=== PATIENT | female | born 1935 | race Caucasian/White ===

== ENCOUNTER 2016-04-12 22:04 | Emergency (ER) | payer MEDICARE, OTHER ==
[~2016-04-12 22:04] MED LIST: ALBU3SOL2 IH; ASPI81TA2 PO; Amoxicillin-Clav 875-125 mg Tablet PO ONE; CAR120CD PO; CARV25T PO; COMBIVENTA IH; FOS70 PO; FURO20TA PO; MIRT30TA PO; NIT4 SL; Ondansetron 2 mg/mL 2 mL Inj ONE; POTA10TA PO; PRE10 PO; SLO64 PO; SMV40T PO; VIB100 PO
--- NOTE | 2016-04-12 23:44 | ED.REPORT ---
HPI-General Illness Date of Service Apr 12, 2016 ED Provider: Boubacar Sandoval MD Patient is an 80 year old female with a history of light chain multiple myeloma , hypertension, atrial fibrillation, and COPD who presents to the ED after she developed abdominal pain, nausea, and vomiting at 2pm this afternoon. The patient states that she has lost her appetite and she has been unable to eat due to her vomiting. She also reports developing shaking chills and fever, worsening in severity since onset. Patient admits to a cough, but she does have a cough at baseline due to her COPD. Patient denies diarrhea, chest pain, or shortness of breath. Patient denies previously having surgery on her abdomen. The patient's grandson was recently sick with GI symptoms as well. Nursing Notes Stated Complaint: NAUSEA, VOMITING Nursing Notes Reviewed: Yes Allergies: Coded Allergies: Aminoglycosides (Verified Allergy, Mild, 01/08/09) Neomycin (Verified Allergy, Mild, 01/08/09) Polymyxin B (Verified Allergy, Mild, 01/08/09) bacitracin (Verified Allergy, Mild, 01/08/09) Scheduled Albuterol/Ipratropium (DuoNEB Nebule) 3 Ml Nebu 3 ML IH Q6HP Alendronate-Expunged Drug, Do Not Renew! (Alendronate-Expunged Drug, Do Not Renew!) 70 Mg Tablet 70 MG PO QW GIVE 30 MINUTES BEFORE BREAKFAST WITH 8-OZ WATER Aspirin-Expunged Drug, Do Not Renew! (Aspirin-Expunged Drug, Do Not Renew!) 81 Mg Tab 81 MG PO DAILY Carvedilol-Expunged Drug, Do Not Renew! (Carvedilol-Expunged Drug, Do Not Renew! ) 25 Mg Tablet 25 MG PO BID HOLD HR<60 Diltiazem-Expunged Drug, Do Not Renew! (Diltiazem CD-Expunged Drug, Do Not Renew !) 120 Mg Capsule 120 MG PO DAILY 24 HOUR DOSAGE FORM Doxycycline-Expunged Drug, Do Not Renew! (Doxycycline-Expunged Drug, Do Not Renew!) 100 Mg Tablet 100 MG PO Q12 Furosemide-Expunged Drug, Do Not Renew! (Furosemide-Expunged Drug, Do Not Renew! ) 20 Mg Tablet 20 MG PO DAILY Ipratropium/Albut-Expunged Drug, Do Not Renew (Combivent-Expunged Drug, Do Not Renew!) 14.7 Gm Aer.w.adap 14.7 GM IH QID Mag Chloride-Expunged Drug, Do Not Renew! (Rvtp-Ceq-Wpgzxmhq Drug, Do Not Renew! ) 64 Mg Tab.dr 64 MG PO DAILY Mirtazapine-Expunged Drug, Do Not Renew! (Remeron-Expunged Drug, Do Not Renew!) 30 Mg Tablet 30 MG PO HSP FOR INSOMNIA Nitroglycerin-Expunged Drug, Do Not Renew! (Nitroglycerin SL-Expunged Drug, Do Not Renew!) 0.4 Mg Subl 0.4 MG SL PRN FOR CHEST PAIN Potassium Chl-Expunged Drug, Do Not Renew! (X-Ilf-Nbsfvyrp Drug, Do Not Renew!) 10 Meq Tablet.sa 10 MEQ PO DAILY PredniSONE-Expunged Drug, Do Not Renew! (PredniSONE-Expunged Drug, Do Not Renew! ) 10 Mg Tab 10 MG PO DAILY TAKE WITH FOOD Simvastatin-Expunged Drug, Choose New Med! (Simvastatin-Expunged Drug, Choose New Med!) 40 Mg Tablet 40 MG PO HS INPATIENT MAX DOSE 40 MG Scheduled PRN Ondansetron ODT (Ondansetron ODT) 8 Mg Tab.rapdis 8 MG PO QID PRN PRN For Nausea General Time Seen by MD: 20:33 Chief Complaint Abdominal pain, Vomiting Hx Obtained From: Patient, Other family... Arrived By: Walk-in Onset Occurred: 5 - 8 hours ago Symptom Duration: Since onset Location: : Abdomen Quality: Painful Severity: Current: Mild Severity: Maximum: Moderate Recent Healthcare: No recent doctor visit, No recent hospitalization Similar Sx Previous: No Past Medical History Past Medical History 1. light chain multiple myeloma 2. COPD, longtime smoker 3. Left leg deep vein thrombosis in 2008. 4. Atrial fibrillation 5. Gastrointestinal bleed in 2008, diagnosed with Clostridium difficile 6. Reported myocardial infarction in 2006, unknown details. 7. Hypertension. 8. Osteoarthritis. 9. Eczema. 10. 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 Tonsillectomy. 12. Cataracts. 13. Left femur fracture status post ORIF in 2007. 14. Past history of alcohol abuse and withdrawal, no longer drinking. 15. Osteoporosis. 16. MRSA Past Surgical History Left femur fracture status post ORIF in 2007. Reports: Tonsillectomy Smoking History Current Every Day Smoker Social History Alcohol Use: In recovery Other Social History: Good social support, Local resident Ambulatory Status Independent Review of Systems Full Review of Systems Constitutional: Reports: Chills, Fever Respiratory: Reports: Non-productive cough, Denies: Shortness of breath Cardiovascular: Denies: Chest pain GI: Reports: Abdominal pain, Nausea, Vomiting, Denies: Diarrhea Complete sys rev & neg: except as marked. Physical Exam Vital Signs Vital Signs Date Time Temp Pulse Resp B/P Pulse Ox O2 Delivery O2 Flow Rate FiO2 04/13/16 03:38 36.6 72 18 91/51 96 Room Air 04/13/16 00:30 37.1 79 22 115/53 91 Room Air see paper chart Initial VS: Reviewed Skin: Warm, Dry, No cyanosis Neurologic: Alert, Oriented, Nonfocal Psychiatric: Mood/affect normal, Behavior normal, Normal thought content General/Constitutional: Awake, Alert Appearance / Presentation: Positive: Pale smells of vomit dry appearing Head / Eyes: Atraumatic, Normocephalic, PERRL ENT: Airway patent Mouth: Positive: Mucous membranes dry Neck: Supple, Full range of motion Respiratory / Chest: Breath sounds NL, Breath sounds = bilat, No respiratory distress, No rales, No rhonchi, No wheezing Cardiovascular: Heart rate NL, No gallop, No murmurs, No rubs Heart Rate / Rhythm: Positive: Irregular rhythm (frequent extra beats) Abdomen: Soft, No guarding, No rebound, BS normoactive Tenderness/Guarding/Rebound: Positive: Tender LUQ..., Tender RUQ... reactive to palpation Upper Extremities Upper Extremity / MS: No swelling, No edema Lower Extremity / Pelvis / MS: No swelling, No edema Interpretation & Diagnostics Lab Results Interpretation Result Diagram: 04/12/16 22004/12/16 220 Test 04/12/16 22:04 04/13/16 00:20 White Blood Count 9.5th/mm3 (3.8-10.1) Red Blood Count 3.74mil/mm3 (3.90-5.20) Hemoglobin 11.9g/dL (12.0-15.6) Hematocrit 35.3% (35.0-46.0) Mean Corpuscular Volume 94.4fL (81-100) Mean Corpuscular Hemoglobin 31.8pg (27.0-35.0) Mean Corpuscular Hemoglobin Concent 33.7% (32.0-37.0) Red Cell Distribution Width 12.9% (12.3-15.4) Platelet Count 274bil/L (150-400) Neutrophils (%) (Auto) 79.4% (40-74) Lymphocytes (%) (Auto) 13.8% (14-46) Monocytes (%) (Auto) 6.1% (4-12) Eosinophils (%) (Auto) 0.2% (0-5) Basophils (%) (Auto) 0.3% (0-3) Sodium Level 141mEq/L (134-144) Potassium Level 3.9mEq/L (3.5-5.2) Chloride Level 97mEq/L (97-108) Carbon Dioxide Level 28mmol/L (18-29) Blood Urea Nitrogen 27mg/dL (8-27) Creatinine 1.16mg/dL (0.57-1.00) Estimat Glomerular Filtration Rate 64mL/min (>59) Glucose Level 171mg/dL (60-99) Lactic Acid Level 1.3mmol/L (0.4-2.0) Calcium Level 9.8mg/dL (8.5-10.1) Total Bilirubin 0.2mg/dL (0.0-1.2) Aspartate Amino Transf (AST/SGOT) 31U/L (0-50) Alanine Aminotransferase (ALT/SGPT) 20U/L (0-32) Alkaline Phosphatase 64U/L (25-165) Total Protein 7.4g/dL (6.4-8.4) Albumin 4.0g/dL (3.4-5.0) Lipase 32U/L (13-60) Urine Color Yellow (YELLOW) Urine Appearance Clear (CLEAR,HAZY) Urine pH 7.0 (5.0-8.0) Urine Specific [place] 1.015 (1.003-1.035) Urine Protein Negativemg/dL (NEG,TRACE) Urine Glucose (UA) Negativemg/dL (NEGATIVE) Urine Ketones Negativemg/dL (NEGATIVE) Urine Occult Blood Negative (NEGATIVE) Urine Nitrite Negative (NEGATIVE) Urine Bilirubin Negative (NEGATIVE) Urine Urobilinogen Normalmg/dL (NORMAL) Urine Leukocyte Esterase Negative (NEGATIVE) Urine RBC 0-2/hpf (0-2) Urine WBC 0-5/hpf (0-5) Urine Epithelial Cells Occasional/hpf (NONE-MOD) Urine Crystals None seen (NONE SEEN) Urine Bacteria None/hpf (NONE-FEW) Urine Hyaline Casts None/lpf (NONE) Urine Granular Casts None seen (NONE SEEN) Urine Waxy Casts None seen (NONE SEEN) Urine Red Blood Cell Casts None seen (NONE SEEN) Urine White Blood Cell Casts None seen (NONE SEEN) Urine Mucus None seen (None Seen) Urine Trichomonas None seen (NONE SEEN) Urine Yeast None (NONE SEEN) Urine Culture Reflexed Not indicated ECG Interpretation ECG Interpretation: Sinus rhythm, Rate 78 atrial premature complex low voltage, extremity leads anteroseptal infarct, age indeterminate Time: 23:44 Interpreted by: ED physician X-Ray Chest Interpretation Chest Xray Interpretation: Impression: No acute cardiopulmonary process. View: Portable Interpretation / Wet Read by: Wet read ED physician Re-Eval/Medical Decision Med Decision/Clinical Course 80-year-old female presents with acute onset of nausea vomiting and poor appetite. Others in the family are similarly afflicted. She is improved here with fluids and Zofran. She desires to go home and try ongoing oral hydration. No particular medications from lab or exam that she requires hospitalization at this point, and since she has tolerated by mouth fluid trial and is looking considerably better, she is discharged home in stable condition. Source of Hx: Old records Time of Eval: 02:18 Patient Status: Condition improved Re-Evaluation/Progress Note: Rechecked the patient, who is resting in bed comfortably. Patient states that she is improved. She was informed that there was nothing acute identified on labs, EKG, and chest x-ray. She will do a fluid trial and states thats she is now hungry. Time of Eval: 03:34 Patient Status: Condition improved, Drinking well without N/V Re-Evaluation/Progress Note: Patient understands and agrees with the plan to be discharged home. Discharge instructions and follow-up discussed. All questions were addressed. Return to the ED warnings given. Counseled Regarding: Diagnosis, Lab results, Need for follow-up, When/why to return to ED Discharge & Departure Primary Impression: Acute gastroenteritis Additional Impression: Multiple myeloma Disposition: Home Discharge Condition All VS Reviewed: Yes Condition: Stable Patient Instructions: Gastroenteritis (ED) Additional Instructions: Zofran as needed for nausea, up to four times daily. Drink clear fluids and maintain her hydration. Advance her diet only slowly back to normal as you tolerate. Avoid fat, milk, meats for a few days. Return promptly if worse despite treatment. Return if you develop a high fever , or other new symptoms of concern. Referrals: Angela Rojas MD (PCP) Scribe Attestation Portions of this note were transcribed by Cecilia Murray. I, Dr. Sandoval personally performed the history, physical exam and medical decision-making; I reviewed and confirmed the accuracy of the information in the transcribed note. Signed by: Dilcia Vences, 04/13/2016 [id number] copies to: Angela Rojas MD, Christopher W MD Apr 12, 2016 23:44 Cecilia Murray Apr 12, 2016 23:49
[2016-04-13 00:30] VITALS: BP 115/53; PULSE 79; RESP 22; O2SAT 91
[2016-04-13 02:03] LABS: Mean Corpuscular Volume 94.4 fL (81-100)
[2016-04-13 02:04] LABS: BASOPHILS % (AUTO) 0.3 % (0-3); EOSINOPHILS % (AUTO) 0.2 % (0-5); MONOCYTES % (AUTO) 6.1 % (4-12); Mean Corpuscular Hemoglobin 31.8 pg (27.0-35.0); NEUTROPHILS % (AUTO) 79.4 % (40-74); Platelet Count 274 bil/L (150-400)
[2016-04-13 02:09] LABS: APPEARANCE,URINE CLEAR (CLEAR,HAZY); COLOR,URINE YELLOW (YELLOW); OCCULT BLOOD,URINE NEGATIVE (NEGATIVE); UROBILINOGEN,URINE NORMAL (NORMAL)
[2016-04-13] MEDS ORDERED: ONDA8TAB10 PO (03:14)
[2016-04-13 03:38] VITALS: BP 91/51; PULSE 72; RESP 18; O2SAT 96
--- NOTE | 2016-04-13 08:57 | DRSVH ---
PROCEDURE: X-RAY CHEST ONE VIEW, PORTABLE ([id number]) INDICATIONS: fever, chills TECHNIQUE: One view of the chest was acquired. COMPARISON: [facility], CR, XR CHEST 2VW, 12/28/2014, 11:59. [facility], C R, CHEST 1VW (PORTABLE), 04/04/2012, 6:34. FINDINGS: Surgical changes and devices: None. Lungs and pleura: No pleural effusions or pneumothorax. Lungs are clear. Lung volumes are increased with flattening of the hemidiaphragms suggesting COPD. Mediastinum: Mediastinal contours appear normal. Heart size is normal. Bones and chest wall: No suspicious bony lesions. Overlying soft tissues appear unremarkable. Allyson ral healed and ununited left posterior-lateral rib fractures redemonstrated. IMPRESSION: Lung volumes are increased suggesting COPD, correlate with pulmonary functions test. 1. Dictated by: Fletcher Reed RRA Interpreted: Mel Reynoso MD on 04/13/2016 at 8:56 Transcribed by: GI on 04/13/2016 at 8:57 Approved by: Mel Reynoso MD, PhD on 04/13/2016 at 17:03
== END 2016-04-13 03:40 | disposition home or self-care (01) ==
LOC: SED 22:04
DX: K52.9 Noninfective gastroenteritis and colitis, unspecified (principal); C90.00 Multiple myeloma not having achieved remission; I10 Essential (primary) hypertension; I25.2 Old myocardial infarction; F17.200 Nicotine dependence, unspecified, uncomplicated; Z79.82 Long term (current) use of aspirin; Z88.1 Allergy status to other antibiotic agents; Z88.8 Allergy status to other drugs, medicaments and biological substances

== ENCOUNTER 2016-11-12 11:25 | Inpatient (IN) | payer MEDICARE, OTHER ==
[~2016-11-12] VITALS: Ht 165.1 cm; Wt 42.6 kg
[~2016-11-12 11:25] MED LIST changes: -Amoxicillin-Clav 875-125 mg Tablet PO ONE; +ONDA8TAB10 PO; -Ondansetron 2 mg/mL 2 mL Inj ONE
[2016-11-12 11:34] VITALS: BP 106/54; PULSE 81; RESP 24; O2SAT 94
[2016-11-12 11:57] LABS: BASOPHILS % (AUTO) 0.1 % (0-3); EOSINOPHILS % (AUTO) 0.6 % (0-5); MONOCYTES % (AUTO) 8.6 % (4-12); Mean Corpuscular Hemoglobin 31.6 pg (27.0-35.0); Mean Corpuscular Volume 95.3 fL (81-100); NEUTROPHILS % (AUTO) 77.8 % (40-74); Platelet Count 207 bil/L (150-400)
--- NOTE | 2016-11-12 12:09 | ED.REPORT ---
HPI-Dyspnea / Wheezing Date of Service Nov 12, 2016 ED Provider: Thom Orona MD Pt is an 81 y/o female w/ a hx of multiple myeloma, CHF, COPD and smoking, LLE DVT, A-fib, HTN, VT, prior alcoholism, presenting to the ED via EMS with her daughter c/o gradual worsening of SOB onset last night. The patient woke up vomiting 4 days ago and since then has been experiencing SOB, productive cough, abdominal pain, anorexia, generalized weakness, pleuritic chest pain. She is not sure what is making her shortness of breath worse or what may have brought it on; denies any notable alleviating or exacerbating factors. She is having difficulty ambulating secondary to generalized weakness and her shortness of breath. She states that she is unsure whether or not this feels similar to previous episodes where she has had COPD exacerbations. Pt denies fever, diarrhea, constipation. There is no baseline oxygen use. She does smoke half a pack of cigarettes each day but hasn't since she has been feeling ill The patient has been using her inhaler multiple times each day without relief. The patient has a known UTI and is being treated for it. Nursing Notes Stated Complaint: SOB Chief Complaint: Respiratory Distress Nursing Notes Reviewed: Yes Allergies: Coded Allergies: Aminoglycosides (Verified Allergy, Mild, 01/08/09) bacitracin (Verified Allergy, Mild, Hives, 11/12/16) neomycin (Verified Allergy, Mild, Hives, 11/12/16) polymyxin B (Verified Allergy, Mild, Hives, 11/12/16) Sulfa (Sulfonamide Antibiotics) (Verified Allergy, Unknown, 11/12/16) Scheduled Aspirin Chew (Aspirin Chew) 81 Mg Chew 162 MG PO QAM Calcium Carbonate/Vitamin D3 (Calcium 500 mg Chewable Tablet) 1 Each Tab.chew 1 EACH PO QAM Carvedilol (Carvedilol) 12.5 Mg Tablet 12.5 MG PO BID HOLD FOR HR < 60 BPM Cholecalciferol (Vitamin D3) (Vitamin D3) 2,000 Unit Tablet 2,000 UNIT PO QAM Cyanocobalamin (Vitamin B-12) (Vitamin B-12) 1,000 Mcg Tablet 1,000 MCG PO QAM Folic Acid (Folic Acid) 0.4 Mg Tablet 0.4 MG PO QAM Furosemide (Furosemide) 20 Mg Tab 20 MG PO QAM Magnesium Chloride (Slow-Mag) 64 Mg Tablet 64 MG PO QAM Mirtazapine (Mirtazapine) 30 Mg Tablet 30 MG PO HS Multivits-Min/Iron/FA/Lutein (Centrum Silver Women Tablet) 8 Mg Iron-400 Mcg- 300 Mcg Tablet 1 EACH PO QAM Nitrofurantoin Monohyd/M-Cryst (MacroBid) 100 Mg Capsule 100 MG PO BID Potassium Chloride ER (Potassium Chloride ER) 10 Meq Tablet 10 MEQ PO DAILYWM TAKE WITH FOOD Simvastatin (Simvastatin) 40 Mg Tablet 40 MG PO HS Tiotropium [place] (Spiriva) 18 Mcg Cap.w.dev 18 MCG IH QAM Scheduled PRN Albuterol Neb Soln (Albuterol Neb Soln) 2.5 Mg/3 Ml Vial.neb 2.5 MG INHALATION Q4H PRN PRN For Shortness of Breath Nitroglycerin SL (Nitroglycerin SL) 0.4 Mg Tab.subl 0.4 MG SL Q5MIN PRN PRN For Chest Pain General Time Seen by MD: 14:27 Chief Complaint Shortness of breath Hx Obtained From: Patient, EMS Arrived By: Ambulance Sudden in Onset?: No Onset Occurred: 9 - 12 hours ago Symptom Duration: Since onset Location: : Chest left: Chest right Quality: Pleuritic Severity: Current: Mild Severity: Maximum: Moderate Recent Healthcare: Previous diagnosis Similar Sx Previous: Yes Past Medical History Past Medical History 1. light chain multiple myeloma 2. COPD, longtime smoker CHF 3. Left leg deep vein thrombosis in 2008. 4. Atrial fibrillation 5. Gastrointestinal bleed in 2008, diagnosed with Clostridium difficile 6. Reported myocardial infarction in 2006, unknown details. 7. Hypertension. 8. Osteoarthritis. 9. Eczema. 10. 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 Tonsillectomy. 12. Cataracts. 13. Left femur fracture status post ORIF in 2007. 14. Past history of alcohol abuse and withdrawal, no longer drinking. 15. Osteoporosis. 16. MRSA Past Surgical History Left femur fracture status post ORIF in 2007. Reports: Tonsillectomy Smoking History Current Every Day Smoker Social History 40 years of alcoholism Alcohol Use: In recovery Other Social History: Good social support, Local resident Ambulatory Status Independent Review of Systems Constitutional: Reports: Weakness - generalized, Denies: Fever Ears / Nose / Throat: Denies: Sore throat Respiratory: Reports: Pleuritic pain, Prod cough, clear, Shortness of breath Cardiovascular: Denies: Orthopnea Musculoskeletal: Denies: Extremity pain Skin: Denies Unexplained bruises Allergy / Immune: Denies: Itching Complete sys rev & neg: except as marked. Eyes: Denies: Blurred bilateral GI: Reports: Abdominal pain, Anorexia, Nausea, Vomiting, Denies: Constipation, Diarrhea Female: Denies: Dysuria Neurologic: Denies: Confusion, Headache Psychiatric: Denies: Change mental status Physical Exam Nursing note and vitals reviewed. Constitutional: Thin elderly female sitting up in bed. Mildly uncomfortable. Head: Normocephalic and atraumatic. Mouth/Throat: Oropharynx is clear and dry. No oropharyngeal exudate. Eyes: EOM are normal. Pupils are equal, round, and reactive to light. Neck: Supple, no tracheal deviation. Cardiovascular: Normal rate, regular rhythm. Equal and intact distal pulses throughout. Pulmonary/Chest: Effort normal. Expiratory wheezes bilateral bases. No respiratory distress. Abdominal: Soft. No distension. Diffuse tenderness to palpation with no rebound , or guarding. BS present. Musculoskeletal: Range of motion grossly intact, moving all extremities. No peripheral edema. Neurological: AOx3. Grossly nonfocal exam. Strength and sensation intact and equal to bilateral upper and lower extremities. Skin: Warm and dry, no rashes or pallor appreciated. Psychiatric: Appropriate mood and affect. Behavior appears normal. Initial Vital Signs Vital Signs (First) Date Time Temp Pulse Resp B/P Pulse Ox O2 Delivery O2 Flow Rate FiO2 11/12/16 11:34 36.9 81 24 106/54 94 Room Air Initial VS: Reviewed Interpretation & Diagnostics Lab Results Interpretation Result Diagram: 11/12/16 1145 11/12/16 1145 Test 11/12/16 11:45 11/12/16 12:27 11/12/16 13:22 11/12/16 13:30 White Blood Count 12.3th/mm3 (3.8-10.1) Red Blood Count 3.20mil/mm3 (3.90-5.20) Hemoglobin 10.1g/dL (12.0-15.6) Hematocrit 30.5% (35.0-46.0) Mean Corpuscular Volume 95.3fL (81-100) Mean Corpuscular Hemoglobin 31.6pg (27.0-35.0) Mean Corpuscular Hemoglobin Concent 33.1% (32.0-37.0) Red Cell Distribution Width 14.4% (12.3-15.4) Platelet Count 207bil/L (150-400) Neutrophils (%) (Auto) 77.8% (40-74) Lymphocytes (%) (Auto) 12.7% (14-46) Monocytes (%) (Auto) 8.6% (4-12) Eosinophils (%) (Auto) 0.6% (0-5) Basophils (%) (Auto) 0.1% (0-3) Prothrombin Time 9.9sec (8.1-12.5) Prothromb Time International Ratio 0.93ratio Activated Partial Thromboplast Time 27.7sec (22.8-33.0) Sodium Level 138mEq/L (134-144) Potassium Level 4.4mEq/L (3.5-5.2) Chloride Level 102mEq/L (97-108) Carbon Dioxide Level 23mmol/L (18-29) Blood Urea Nitrogen 28mg/dL (8-27) Creatinine 1.15mg/dL (0.57-1.00) Estimat Glomerular Filtration Rate 65mL/min (>59) Glucose Level 108mg/dL (60-99) Calcium Level 8.6mg/dL (8.5-10.1) Magnesium Level 2.0mg/dL (1.6-2.6) Total Bilirubin 0.2mg/dL (0.0-1.2) Aspartate Amino Transf (AST/SGOT) 51U/L (0-50) Alanine Aminotransferase (ALT/SGPT) 33U/L (0-32) Alkaline Phosphatase 96U/L (25-165) Pro-B-Type Natriuretic Peptide 90674ok/mL (0-738) Total Protein 6.4g/dL (6.4-8.4) Albumin 3.1g/dL (3.4-5.0) Lipase 27U/L (13-60) Procalcitonin 1.38ng/mL (0.00-0.08) Thyroid Stimulating Hormone (TSH) 3.720uIU/mL (0.450-4.500) Lactic Acid Level 0.8mmol/L (0.4-2.0) Urine Legionella pneumophilia Ag Negative (Negative) Urine Color Yellow (YELLOW) Urine Appearance Hazy (CLEAR,HAZY) Urine pH 6.5 (5.0-8.0) Urine Specific [place] 1.010 (1.003-1.035) Urine Protein 100mg/dL (NEG,TRACE) Urine Glucose (UA) Negativemg/dL (NEGATIVE) Urine Ketones Negativemg/dL (NEGATIVE) Urine Occult Blood Trace (NEGATIVE) Urine Nitrite Negative (NEGATIVE) Urine Bilirubin Negative (NEGATIVE) Urine Urobilinogen Normalmg/dL (NORMAL) Urine Leukocyte Esterase Small (NEGATIVE) Urine RBC 3-10/hpf (0-2) Urine WBC 11-50/hpf (0-5) Urine Epithelial Cells Occasional/hpf (NONE-MOD) Urine Crystals None seen (NONE SEEN) Urine Bacteria Few/hpf (NONE-FEW) Urine Hyaline Casts None/lpf (NONE) Urine Granular Casts None seen (NONE SEEN) Urine Waxy Casts None seen (NONE SEEN) Urine Red Blood Cell Casts None seen (NONE SEEN) Urine White Blood Cell Casts None seen (NONE SEEN) Urine Mucus None seen (None Seen) Urine Trichomonas None seen (NONE SEEN) Urine Yeast None (NONE SEEN) Urinalysis Comment None Urine Culture Reflexed Indicated ECG Interpretation ECG Interpretation: Sinus rhythm rate [address] or T changes Time: 11:55 Interpreted by: ED physician Normal ECG Interpretation: No acute ischemic changes X-Ray Chest Interpretation Chest Xray Interpretation: IMPRESSION: 1. Mild right basilar airspace disease may represent atelectasis, pneumonia, or aspiration. 2. Trace right-sided pleural effusion. Dictated by: Dionte Du M.D. on 11/12/2016 at 11:25 Approved by: Dionte Du M.D. on 11/12/2016 at 11:27 View: Portable, 1 view Interpretation / Wet Read by: Interpret - Radiologist CT Abd / Pelvis Interpretation IMPRESSION: 1. No definite acute abnormality within the abdomen or pelvis. 2. Small bilateral pleural effusions and associated atelectasis. Superimposed right basilar pneumonia difficult to exclude. 3. Moderate residual stool within the colon. No bowel obstruction. 4. Colonic diverticulosis without diverticulitis. The appendix is normal. 5. Cholelithiasis. 6. Perinephric edema probably a senescent. The possibility of renal inflammation/infection is difficult to exclude and clinical correlation is recommended. No definite renal calculi. 7. Extensive pancreatic calcifications are suggestive of prior pancreatitis. No findings to suggest acute pancreatitis are evident. Dictated by: Dionte Du M.D. on 11/12/2016 at 15:38 Approved by: Dionte Du M.D. on 11/12/2016 at 15:57 Study type: Abdominal CT IV contrast, Abdom CT oral contrast Interpretation / Wet Read by: Interpret - Radiologist Re-Eval/Medical Decision Med Decision/Clinical Course In summary, 81-year-old female presenting to the ED for evaluation of worsening shortness of breath over the past day. Differential is broad and includes ACS, pneumonia, PE, COPD exacerbation, CHF exacerbation, etc. Of note, she also has some significant abdominal tenderness. EKG demonstrates normal sinus rhythm and no acute ischemic changes. Initial laboratory studies notable for a troponin [place] 0.078, [place] [address], creatinine of 1.15, white blood cell count of 12.3, hemoglobin of 10.1, urinalysis with 11-50 white blood cells and a small amount of leukocyte esterase concerning for mild or resolving urinary tract infection. Lactic acid 0.8. LFTs mildly elevated. CT scan of the patient's abdomen and pelvis demonstrates bilateral pleural effusions and possible right- sided pneumonia, as well as the above findings. I suspect that she is having a CHF exacerbation with a possible superimposed pneumonia, and that this is likely causing a type II NSTEMI. Given the above, patient was started on antibiotics for possible community-acquired pneumonia, and given Lasix. Plan admission for further management and evaluation. Patient agreeable to the plan as stated, no further questions. Re-Evaluation/Progress : Time of Eval: 15:01 Re-Evaluation/Progress Note: Pt rechecked. Informed pt of need for admission. Pt understands and agrees with plan for admission. All questions addressed. CODE STATUS DISCUSSED: FULL CODE Consultation : Referral / Consult Name: Edis Montana MD Consulted With: Hospitalist Call Returned at: 17:59 Supervisor Lump Room: Will see patient, Agrees with eval, Agrees with plan, Accepts admit Counseled Regarding: Diagnosis, Lab results, Need for admission Discharge & Departure Impression: Primary Impression: CHF exacerbation Congestive heart failure type: unspecified congestive heart failure type Qualified Code: I50.9 - Heart failure, unspecified Additional Impressions: Pneumonia involving right lung Pneumonia type: due to unspecified organism Lung location: lower lobe of lung Qualified Code: J18.1 - Lobar pneumonia, unspecified organism NSTEMI (non-ST elevated myocardial infarction) Bilateral pleural effusion Cholelithiasis Cholelithiasis location: gallbladder Cholecystitis presence: without cholecystitis Biliary obstruction: without biliary obstruction Qualified Code : K80.20 - Calculus of gallbladder without cholecystitis without obstruction Disposition: ADMITTED TO HOSPITAL Discharge Condition All VS Reviewed: Yes Condition: Stable Referrals: Amy Lee (PCP) Scribe Attestation Portions of this note were transcribed by Hussain Turner. I, Dr. Orona personally performed the history, physical exam and medical decision-making; I reviewed and confirmed the accuracy of the information in the transcribed note. copies to: Amy Lee William B MD Nov 12, 2016 12:09 HUSSAIN TURNER Nov 12, 2016 12:12 Thom Orona MD Nov 12, 2016 12:09 HUSSAIN TURNER Nov 12, 2016 12:12
--- NOTE | 2016-11-12 12:29 | DRSVH ---
PROCEDURE: X-RAY CHEST ONE VIEW, PORTABLE ([id number]) INDICATIONS: cough TECHNIQUE: One view of the chest was acquired. COMPARISON: [facility], [place], XR CHEST 2VW, 04/30/2016, 14:25. FINDINGS: Surgical changes and devices: None. Lungs and pleura: Blunting of the right costophrenic angle is evident with interstitial prominence an d probable airspace disease at the right lung base. Aeration of the left lung appears to be within n ormal limits. There probably is mild pulmonary hyperexpansion. No pneumothorax is evident. Mediastinum: Mediastinal contours appear normal. Heart size is normal. There is aortic atheroscler osis. Bones and chest wall: No suspicious bony lesions. A chronic unfused left 7th rib fracture is eviden t. Multilevel degenerative changes of the spine and shoulders are noted. Overlying soft tissues appe ar unremarkable. IMPRESSION: 1. Mild right basilar airspace disease may represent atelectasis, pneumonia, or aspiration. 2. Trace right-sided pleural effusion. Dictated by: Dionte Du M.D. on 11/12/2016 at 11:25 Approved by: Dionte Du M.D. on 11/12/2016 at 11:27
[2016-11-12 12:38] VITALS: BP 95/56; PULSE 82; RESP 21; O2SAT 93
[2016-11-12 12:40] LABS: TROPONIN T 0.078 ug/L (0.0-0.011)
[2016-11-12 14:08] LABS: APPEARANCE,URINE HAZY (CLEAR,HAZY); COLOR,URINE YELLOW (YELLOW); OCCULT BLOOD,URINE TRACE (NEGATIVE); PH,URINE 6.5 (5.0-8.0); UROBILINOGEN,URINE NORMAL (NORMAL)
[2016-11-12] MEDS ORDERED: Iohexol 300 mg/mL 30 mL Inj PO ONE (15:05)
[2016-11-12] MEDS ORDERED: Furosemide 10 mg/mL 4 mL Inj IVPUSH ONE (15:10)
[2016-11-12 16:45] VITALS: BP 109/60; PULSE 77; RESP 20; O2SAT 95
--- NOTE | 2016-11-12 16:58 | DRSVH ---
PROCEDURE: CT ABDOMEN AND PELVIS WITHOUT CONTRAST ([id number]) INDICATIONS: pleuritic chest pain, dyspnea TECHNIQUE: Noncontrast 5 mm thick sections acquired from the diaphragms to the symphysis. 5 mm coronal and sagi ttal reformats were then performed. For radiation dose reduction, the following was used: automated exposure control, adjustment of mA and/or kV according to patient size. COMPARISON: [facility], CT, ABD/PELVIS W/CON ([facility]), 03/28/1998, 17:20. FINDINGS: Image quality: Diagnostic. ABDOMEN: Lung bases: Small bilateral pleural effusions are present (right greater than left). Mild consolidat ion within the posterior right lung is evident. There is small nodular density is evident within the right middle lobe, which is similar to the examination from 1998 and suggestive of scarring. An add itional subcentimeter nodule is located along the minor fissure on the right at a similar location, w hich was not readily apparent on the previous exam and may represent a calcified granuloma. The hear t is normal in size. Extensive coronary artery atherosclerosis is present. There is a trace pericar dial effusion versus pericardial thickening. Solid organs: The liver, spleen, and adrenals are unremarkable. Gallstones are seen within the gall bladder. The kidneys are normal in size. No margi hydronephrosis is evident. No renal calculi are appreciated. Perinephric edema is present bilaterally, which likely a senescent. Multiple calcificat ions are present involving the pancreas. No surrounding inflammation is appreciated. Peritoneum and bowel: There is a small hiatal hernia. A small gastric diverticulum is evident involv ing the fundus without surrounding inflammation. Otherwise, the stomach is unremarkable. The small bowel loops are nondilated. Moderate residual stool is identified within the colon. Extensive colon ic diverticulosis is present without surrounding inflammation to suggest acute diverticulitis. The a ppendix is well-visualized and normal. Nodes and vessels: No retroperitoneal or mesenteric adenopathy by size criteria. Aorta and inferior vena cava are normal in caliber. Extensive aortic atherosclerosis is noted. Bones: The bone mineralization is decreased. Prominent multilevel degenerative changes of the lumba r spine are present. No definite acute fractures are appreciated. No suspicious osseous lesions are evident. PELVIS: Genitourinary: Bladder wall thickness is normal. The uterus does not appear to be enlarged. The ov adrian are not definitely seen. Miscellaneous: No inguinal hernias or adenopathy. There may be a trace amount of free fluid within the pelvis. No loculated fluid collections or free air are evident. Bones: No suspicious bony lesions. No acute pelvic fractures are evident. Postoperative changes re lated to previous left hip open reduction and internal fixation procedure are noted. IMPRESSION: 1. No definite acute abnormality within the abdomen or pelvis. 2. Small bilateral pleural effusions and associated atelectasis. Superimposed right basilar pneumon ia difficult to exclude. 3. Moderate residual stool within the colon. No bowel obstruction. 4. Colonic diverticulosis without diverticulitis. The appendix is normal. 5. Cholelithiasis. 6. Perinephric edema probably a senescent. The possibility of renal inflammation/infection is diffi cult to exclude and clinical correlation is recommended. No definite renal calculi. 7. Extensive pancreatic calcifications are suggestive of prior pancreatitis. No findings to suggest acute pancreatitis are evident. Dictated by: Dionte Du M.D. on 11/12/2016 at 15:38 Approved by: Dionte Du M.D. on 11/12/2016 at 15:57
[2016-11-12] MEDS ORDERED: cefTRIAXone Inj 2,000 MG in Dextrose 5% Minibag Plus 50 ML IV ONE (17:05)
[2016-11-12] MEDS ORDERED: Azithromycin Inj 500 MG in Dextrose 5% w/Vial Mate 250 ML IV ONE (17:05)
[2016-11-12] MEDS ORDERED: NITR100 PO (17:24)
[2016-11-12] MEDS ORDERED: TIOT18CA3 IH (17:24)
[2016-11-12] MEDS ORDERED: FUR20 PO ×2 (17:25→17:48)
[2016-11-12] MEDS ORDERED: NITR0.4T6 SL (17:48)
[2016-11-12] MEDS ORDERED: CARV12.52 PO (17:48)
[2016-11-12] MEDS ORDERED: SLO64 PO (17:48)
[2016-11-12] MEDS ORDERED: ASPI81TA3 PO (17:48)
[2016-11-12] MEDS ORDERED: POTA10TA12 PO (17:48)
[2016-11-12] MEDS ORDERED: SIMV40TA5 PO (17:48)
[2016-11-12 17:50] VITALS: BP 101/64; PULSE 78; RESP 20; O2SAT 95
[2016-11-12] MEDS ORDERED: MIRT30TA6 PO (17:50)
[2016-11-12] MEDS ORDERED: CYAN10008 PO (17:53)
[2016-11-12] MEDS ORDERED: FOLI0.4T2 PO (17:53)
[2016-11-12] MEDS ORDERED: MULT-1065 PO (17:53)
[2016-11-12] MEDS ORDERED: CALC-952 PO (17:53)
[2016-11-12] MEDS ORDERED: CHOL200025 PO (17:53)
[2016-11-12] MEDS ORDERED: ALBU2.5V4 INHALATION (17:54)
[2016-11-12] MEDS ORDERED: Polyethylene Glycol (PEG) 17 Gm Powder PO PRN (17:55)
[2016-11-12] MEDS ORDERED: Alum-Mag Hydrox-Simeth 30 mL Suspension PO PRN (17:55)
[2016-11-12] MEDS ORDERED: 0.9% Sodium Chloride 1,000 ML IV SCH (17:55)
--- NOTE | 2016-11-12 18:01 | PCM.HPMED ---
Subjective Date of Service Nov 12, 2016 Primary Provider: Admitting Physician: Primary Care Physician: Amy Lee Attending Physician: Chief Complaint: Patient 81-year-old female from home presents with shortness of breath and abdominal pain. she also has generalized weakness of 4 days History of Present Illness: Pt carries a medical history significant for multiple myeloma, CHF, COPD, paroxysmal atrial fibrillation, hypertension, history of DC, and COPD active smoker. Patient presented with 4 days of shortness of breath with associated productive cough, mild fever, malaise, and fatigue. Patient unable to tolerate walking even from bedroom to bathroom due to the shortness of breath whereas she could before. Concurrently, patient also has a nausea and vomiting for the past 4 day with very little by mouth intake. Today, patient reported significant diffuse abdominal pain and mild constant left-sided chest pain, and thus brought into the ED for further evaluation. Chest pain associated with inspiration, no radiation to left arm or jaw however. Patient was taken to the ED at [facility] last Wednesday for similar symptoms, found positive for UTI, and thus, was given nitrofurantoin prior to discharge. In the ED, labs shows WBC 12.3 with neutrophils 77.8%. With x-ray showing mid right airspace disease, possible atelectasis or pneumonia. Antibiotics ceftriaxone and azithromycin was thus started. Due to increasing abdominal pain , CT abdomen also ordered showing only perinephric edema probably secondary to renal inflammation and diverticulosis. Significant, routine screening labs shows a troponin elevation. Thus patient was admitted to the medical floor for possible an NSTEMI, CHF exacerbation, and possible pneumonia. Review of Systems: A comprehensive review of systems was conducted with the patient and found to be negative except as above in the History of Present Illness. Allergies Coded Allergies: Aminoglycosides (Verified Allergy, Mild, 01/08/09) bacitracin (Verified Allergy, Mild, Hives, 11/12/16) neomycin (Verified Allergy, Mild, Hives, 11/12/16) polymyxin B (Verified Allergy, Mild, Hives, 11/12/16) Sulfa (Sulfonamide Antibiotics) (Verified Allergy, Unknown, 11/12/16) Home Medications Medication based upon NexGen Lasix 20 mg daily Klor-Con 1 tablet daily Zocor 40 mg daily Mirtazapine nightly Carvedilol 12.5 mg twice a day Albuterol sulfate's 2.5 mg inhaler 3-4 times as needed Nicotine patch Vitamin B12 Magnesium oxide 450 mg daily Calcium supplement DuoNeb 0.5 3 mg when necessary Tizanidine 0.5-1 mg every 6 hours as needed Aspirin 81 mg daily PMH History of DC 2001 COPD CHF Anemia chronic disease as History of alcoholism Bilateral hearing loss Dyslipidemia X line hypertension Osteopenia Surgical History Left hip fracture status post ORIF Family History Family history of coronary artery disease Social History Hx Alcohol Use: No (remote) Hx Substance Use: No Hx Tobacco Use: Yes Smoking Status: Current Every Day Smoker Exam Vital Signs Vital Sign - Last Date Time Temp Pulse Resp B/P Pulse Ox O2 Delivery O2 Flow Rate FiO2 11/12/16 17:50 36.7 78 20 101/64 95 Room Air Exam General: No acute distress, appropriately interactive, frail HEENT: Normocephalic, atraumatic. PERRLA, EOMI, Anicteric sclerae, moist conjunctivae. Neck: No bruits, JVD present, Cardiovascular: Regular rate and rhythm with no murmurs, rubs, or gallops appreciated Pulmonary: Bilateral air stone, coarse breath at the lower bases, cannot appreciate any crackles Abdomen: Positive bowel sounds, soft and diffusely tender Extremities: No clubbing or cyanosis, no lymphedema, no b/l lower leg edema Skin: Normal temperature, turgor, and texture; no rash. No visualized skin ulcer. Neurological: CN II-VII grossly intact, moving equally on all 4 extremities Psychiatric: Normal mood and affect. AOx3 Lab and Diagnostics Result Diagram: 11/12/16 1145 11/12/16 1145 X-Rays, CTs and MRIs PROCEDURE: CT ABDOMEN AND PELVIS WITHOUT CONTRAST ([id number]) INDICATIONS: pleuritic chest pain, dyspnea IMPRESSION: 1. No definite acute abnormality within the abdomen or pelvis. 2. Small bilateral pleural effusions and associated atelectasis. Superimposed right basilar pneumonia difficult to exclude. 3. Moderate residual stool within the colon. No bowel obstruction. 4. Colonic diverticulosis without diverticulitis. The appendix is normal. 5. Cholelithiasis. 6. Perinephric edema probably a senescent. The possibility of renal inflammation/infection is difficult to exclude and clinical correlation is recommended. No definite renal calculi. 7. Extensive pancreatic calcifications are suggestive of prior pancreatitis. No findings to suggest acute pancreatitis are evident. Dictated by: Dionte Du M.D. on 11/12/2016 at 15:38 Assessment & Plan Patient is an 81-year-old male with a medical history significant for CHF, COPD , atrial fibrillation, hypertension, and DC with shortness of breath, productive cough, and abdominal pain admitted for an NSTEMI, CHF exacerbation, possible pneumonia. # NSTEMI vs demand ischemia from infection/sepsis -elevated trops, no ST/T changes however/ -likely demand ischemia -ASA 81mg given, restart home metoprolol, no statin 2nd to elevated LFT. -started heparin drip ,will discontinue heparin drip if no wall motion abnormality on echocardiogram -trend Troponin, CK/CKmb ordered -Echo pending -placed on telemetry # suspected sepsis from partially treated UTI -initial SBP 93,wbc 12.3 -UA with pyuria -Blood and urine culture pending -Continue ceftriaxone # Generalized weakness due to UTI, # Acute CHF exacerbation -elevated BNP, JVD noted -received 1 dose of 40 mg Lasix in the ED, hold off for now until sepsis is treated # Atrial fibrillation -ASA only outpatient -rate controlled, cont home Metoprolol # Initially suspected Community aquired pneumonia,unlikely -Evident by Ct-abd and Crx -procalcitonin 1.38 -Cont broad-spectrum ceftriaxone and azithromycin started in the ED. will discontinue azithromycin -Patient has no significant cough. Unchanged from her baseline COPD # COPD -Without exacerbation -Continue home inhalers -Duoneb prn # Mild transaminitis -Hypoperfusion? -Lipase negative # CKD stage IIIa -stable, baseline Cr 1.15. CODE STATUS full code DVT prophylaxis heparin Patient Status: Patient is admitted under inpatient status with expected length of stay GREATER than 2 midnights due to severity of presenting symptoms, risk of adverse event, and complexity of treatment plan. Resuscitation Status: CPR: Attempt Resuscitation copies to: Amy Lee Phuc H DO Nov 12, 2016 18:01 Edis Montana MD Nov 13, 2016 07:52
[2016-11-12 18:51] VITALS: BP 94/58; PULSE 77; RESP 18; O2SAT 96
--- NOTE | 2016-11-12 18:51 | NUR ---
admit pt admitted from Ed. transported via gurney to [facility] and transferred to [facility] bed by staff. pt states that she is having stomach pain but refuses medication at the moment. pt has 5% Dextrose running and tele is being applied.
[2016-11-12 19:01] LABS: INR 0.93 ratio
[2016-11-12] MEDS ORDERED: Heparin 5,000 Unit/mL Inj IVPUSH PRN (19:40)
[2016-11-12] MEDS ORDERED: Heparin 25K Unit/500mL 0.45 NS 25,000 UNIT in IV Premix 1 EACH IV SCH (19:40)
[2016-11-12 19:54] LABS: Creatine Kinase 47 U/L (21-215)
[2016-11-12 19:57] LABS: TROPONIN T 0.065 ug/L (0.0-0.011)
--- NOTE | 2016-11-12 20:19 | NUR ---
Admit nurse note Admission assessment completed based on pt. report with a lot of assistance from granddaughter over the phone. Pt. is extremely [place] and is not wearing her hearing aides. She c/o 7/10 abdominal pain which is making her have difficulty answer questions and she cannot sleep. Allergies verified, aside from aminoglycosides. Neither pt. nor granddaughter remember this allergy. Nonslip socks placed and pt. oriented to room, call beltre and fall precautions. Daughter Florinda arrives and states she will stay at the bedside. Daughter attempting to obtain advance directives from pt.'s home. Med history obtained by ED pharmacist. Granddaughter states pt. has not been using her albuterol inhaler much at home because she is afraid of becoming dependent on it. She states pt. also has difficulty ambulating due to L hip pain which she has had persistently since her hip replacement. Pt. walks short distances only - to bathroom and back. Granddaughter reports a lesion on pt.'s ankle, which has been labeled a possible bed sore "she doesn't stay in bed long enough to get a bed sore." Wound care consult initiated. Report given to Halie Garcia.
[2016-11-12 20:30] VITALS: BP 108/63; PULSE 65; PULSE 74; RESP 16; RESP 18; O2SAT 92; O2SAT 93
[2016-11-12] MEDS: oxyCODONE 1 mg/mL 5 mL Liquid PO PRN (20:41)
[2016-11-12] MEDS ORDERED: predniSONE 20 mg Tablet PO SCH (21:45)
[2016-11-13] VITALS (10 sets, daily range): BP systolic 100–147; BP diastolic 51–76; PULSE 67–76; RESP 16–18; O2SAT 93–97
[2016-11-13] MEDS ORDERED: Heparin 5,000 Unit/mL Inj SUBQ SCH (00:30)
--- NOTE | 2016-11-13 05:40 | NUR ---
Nasal MARS screen sent at pm, Stool guaiac sent now. small hard dark brown stool this am. Pt placed contact precaution until rule out MRSA.
[2016-11-13 05:53] LABS: BASOPHILS % (AUTO) 0.2 % (0-3); EOSINOPHILS % (AUTO) 0.1 % (0-5); MONOCYTES % (AUTO) 1.7 % (4-12); Mean Corpuscular Hemoglobin 30.2 pg (27.0-35.0); Mean Corpuscular Volume 93.4 fL (81-100); NEUTROPHILS % (AUTO) 86.6 % (40-74); Platelet Count 221 bil/L (150-400)
--- NOTE | 2016-11-13 06:14 | NUR ---
Pain/Cardiac/Respiration. Pt c/o abdominal pain 7/10 at the beginning of the shift, with diffused tenderness, mostly at right upper quadrant, Hassan sign (+), Pt denies nausea, vomiting. Roxycodone ordered and 2.5mg given, pain resolved. Pt denies chest pain or pressure, palpitation throughout the night, Tele: SR 70S PACs PVCs. Distant S1 S2, no murmur or rubs. VSS, recent BP 104/51. Cardiac Heparin dripping currently 800 units/hr running. No active bleeding noted. Cough occasionally, nonproductive, sputum sample needed. Denies SOB in bed. Coarse lung sounds, generalized few crackles at bilaterally LLs. SPO2 around 93% on RA.
[2016-11-13 08:01] LABS: TROPONIN T 0.039 ug/L (0.0-0.011)
[2016-11-13] MEDS: cefTRIAXone Inj 2,000 MG in Dextrose 5% Minibag Plus 50 ML IV SCH (09:10)
--- NOTE | 2016-11-13 10:33 | PCM.PNMED ---
Subjective Date of Service Nov 13, 2016 Subjective Patient feeling better overall. Generalized weakness improving. Afebrile. Blood culture growing gram-negative rods. Troponin trended down. Heparin drip discontinued. Exam Vital Signs Vital Sign - Last Date Time Temp Pulse Resp B/P Pulse Ox O2 Delivery O2 Flow Rate FiO2 11/13/16 10:06 36.6 67 16 110/59 93 Room Air Intake and Output 11/12/16 11/12/16 11/13/16 Cumulative From/Thru 15:00 23:00 07:00 11/12/16 11:34 - 11/13/16 06:01 Intake Total 221 ml 221 ml Output Total 500 ml 500 ml Balance -279 ml -279 ml Intake Oral 0 ml 0 ml IV Total 221 ml 221 ml Output Urine Total 500 ml 500 ml # Voids 1 1 # Bowel Movements 0 0 Exam General: No acute distress, appropriately interactive, frail HEENT: Normocephalic, atraumatic. PERRLA, EOMI, Anicteric sclerae, moist conjunctivae. Neck: No bruits, JVD present, Cardiovascular: Regular rate and rhythm with no murmurs, rubs, or gallops appreciated Pulmonary: Bilateral air stone, coarse breath at the lower bases, cannot appreciate any crackles Abdomen: Positive bowel sounds, soft and diffusely tender Extremities: No clubbing or cyanosis, no lymphedema, no b/l lower leg edema Skin: Normal temperature, turgor, and texture; no rash. No visualized skin ulcer. Neurological: CN II-VII grossly intact, moving equally on all 4 extremities Psychiatric: Normal mood and affect. AOx3 IVs and Medications Medications Reviewed: Medications were reviewed in detail Lab and Diagnostics Result Diagram: 11/13/1640 11/13/1640 X-Rays, CTs and MRIs PROCEDURE: CT ABDOMEN AND PELVIS WITHOUT CONTRAST ([id number]) INDICATIONS: pleuritic chest pain, dyspnea IMPRESSION: 1. No definite acute abnormality within the abdomen or pelvis. 2. Small bilateral pleural effusions and associated atelectasis. Superimposed right basilar pneumonia difficult to exclude. 3. Moderate residual stool within the colon. No bowel obstruction. 4. Colonic diverticulosis without diverticulitis. The appendix is normal. 5. Cholelithiasis. 6. Perinephric edema probably a senescent. The possibility of renal inflammation/infection is difficult to exclude and clinical correlation is recommended. No definite renal calculi. 7. Extensive pancreatic calcifications are suggestive of prior pancreatitis. No findings to suggest acute pancreatitis are evident. Dictated by: Dionte Du M.D. on 11/12/2016 at 15:38 Assessment & Plan Patient is an 81-year-old male with a medical history significant for CHF, COPD , atrial fibrillation, hypertension, and NV with shortness of breath, productive cough, and abdominal pain admitted for an NSTEMI, CHF exacerbation, possible pneumonia. # Escherichia coli bacteremia/ sepsis from partially treated UTI -initial SBP 93,wbc 12.3 -UA with pyuria,treated with Nitrofurantoin -Blood culture growing Escherichia coli and urine culture pending -Continue ceftriaxone. Discontinue azithromycin. Consulted ID # demand ischemia from infection/sepsis -elevated trops, no ST/T changes however -likely demand ischemia,NSTEMI unlikely -ASA 81mg given, restart home metoprolol, no statin 2nd to elevated LFT. -Initially started heparin drip ,will discontinue heparin drip. Echocardiogram pending -trended downTroponin, -Echo pending -placed on telemetry # Generalized weakness due to UTI, # Suspected Acute CHF exacerbation -elevated BNP, JVD noted -received 1 dose of 40 mg Lasix in the ED, hold off for now until sepsis is treated -echo pending # history of light chain disease ,chronic # Atrial fibrillation -ASA only outpatient -rate controlled, cont home Metoprolol -not on AC # Initially suspected Community aquired pneumonia,unlikely -Evident by Ct-abd and Crx -procalcitonin 1.38 -Cont broad-spectrum ceftriaxone and azithromycin started in the ED. will discontinue azithromycin -Patient has no significant cough. Unchanged from her baseline COPD # COPD -Without exacerbation -Continue home inhalers -Duoneb prn # Mild transaminitis -Hypoperfusion? -Lipase negative # CKD stage IIIa -stable, baseline Cr 1.15. CODE STATUS full code DVT prophylaxis heparin Patient Status: Patient is admitted under inpatient status with expected length of stay GREATER than 2 midnights due to severity of presenting symptoms, risk of adverse event, and complexity of treatment plan. VTE Mechanical Devices: Intermittant Pneumatic CD Resuscitation Status: CPR: Attempt Resuscitation Edis Montana MD Nov 13, 2016 10:33
--- NOTE | 2016-11-13 13:08 | CONS ---
[address] [address] CONSULTATION REPORT PATIENT: JAMES DENNISON : 1935 MR#: [id number] ADMIT: 11/12/2016 JOB ID: [id number] DATE OF SERVICE: 11/13/2016 INFECTIOUS DISEASE CONSULTATION: I thank Dr. Montana for this timely consult. REASON FOR CONSULTATION: E. coli bacteremia. HISTORY OF PRESENT ILLNESS: The patient is an 81-year-old woman with a complex past medical history which includes multiple myeloma, CHF, COPD, a past history of alcoholism, and until a few days ago cigarette smoking. She was seen last week at the [facility] complaining of fatigue, malaise, increasing shortness of breath, and perhaps some flank pain. She says she did not have much going on in the way of dysuria, urgency, or frequency but she was nonetheless diagnosed at [facility] with a UTI and sent home on nitrofurantoin. Despite taking the nitrofurantoin for the past week, she has had increasing malaise, weakness, shortness of breath, fatigue, fever, cough, and diffuse abdominal pain, perhaps with some flank tenderness, which is a bit hard to tell based on her history. In any event she presented to this hospital yesterday afternoon and was evaluated and admitted. Blood cultures have already returned positive for E. coli, and we do not yet have a urine culture as there was a mix-up in the micro lab and it was not properly plated, so we have evidence of an E. coli bacteremia without proof of a UTI in this elderly woman. An ID consult is requested regarding help in managing this situation. PAST MEDICAL HISTORY: 1. COPD secondary to ongoing cigarette smoking. 2. History of congestive heart failure. 3. Multiple myeloma, or as the patient calls it light chain disease, which is followed by the oncologist at [facility]. 4. History of alcoholism. 5. Dyslipidemia. 6. Osteopenia. 7. Status post left hip fracture with ORIF. SOCIAL HISTORY: The patient quit smoking a few days ago. She has was at one time a very heavy drinker, though she denies history of pancreatitis. She currently lives in [place] but is a graduate of [employer] school. FAMILY HISTORY: Negative for TB in first- and second-degree relatives. REVIEW OF SYSTEMS: The patient has no significant headache at this time, though she did have a headache as part of this illness which was mild. No sore throat. She has chronic baseline cough and shortness of breath which has been worse over the past few days. No chest pain per se. She did have some flank pain earlier; it has now dissipated. She has had some vague abdominal pain with anorexia. No nausea or vomiting. No significant diarrhea. She denies dysuria, urgency, or frequency. No skin breakdown or swelling of the joints. The remainder of the review of systems is negative. PHYSICAL EXAMINATION: Reveals an afebrile woman temp 36.6, pulse 67, respiratory rate 16, blood pressure 110/59. She is in no acute distress and able to give a lucid history. She is thin, with some evidence of wasting; her BMI is only 15.4 and her weight only 42 kg, but she is in no obvious acute distress. Some minimal temporal wasting is present. Eyes: Without conjunctivitis or scleral icterus. Nose: Normal. Oral cavity: No thrush or hairy leukoplakia. Neck: Reasonably supple, without adenopathy. Lungs: Some scattered rales and rhonchi bilaterally. Cardiac tones regular rate and rhythm. The patient's abdomen is essentially soft and nontender at this point, without organomegaly. There is no flank tenderness whatsoever. She does not have a Gil catheter. There is no suprapubic tenderness. Her joints are without evidence of synovitis. She has reasonable peripheral pulses. There is no evidence for skin breakdown. She is neurologically quite intact. LABORATORIES: Include white count yesterday 12,000, today 11. Platelet count 221. Creatinine 1.1. Albumin 2.9. Procalcitonin 0.76, down from 1.38 yesterday. Urinalysis 11-50 white cells, 3-10 red cells. Urine culture was not plated during the night; it has just been done today, so we do not know anything about the urine culture. Blood cultures however positive for E. coli already. Urine culture is now officially pending. Pneumococcal and Legionella urine antigens are negative. MRSA screen negative. IMAGING: Includes an abdominopelvic CT scan which I reviewed in detail. It shows some atelectasis and small pleural effusions, but I do not see anything there that is convincing of pneumonia. There is some diverticulosis, without diverticulitis, some cholelithiasis, but no evidence of cholecystitis. There is some perinephric edema which the radiologist said could be consistent with renal infection or could be senescent. No renal calculi are noted. She does have extensive pancreatic calcifications which are very impressive and may go along with her prior history of alcoholism, though the patient denies ever being formally diagnosed with pancreatitis. IMPRESSION: This is a somewhat complex but very spunky elderly woman from [place] who presents with more than a week of fevers, chills, weakness, malaise, and perhaps some flank pain. She was diagnosed with a probable urinary tract infection over at [facility] and given nitrofurantoin for a week, which she took, but she steadily worsened despite the antibiotic therapy. At this point we have evidence of E. coli in the blood and I suspect her urine will grow E. coli but the specimen was not streaked during the night so we will not have any results until tomorrow. In the meantime we should cover the patient with appropriate coverage for the E. coli and we need not be concerned about pneumonia. RECOMMENDATIONS: 1. I would discontinue the azithromycin she has been receiving. 2. I would continue with ceftriaxone as the patient looks quite comfortable and seems to be improving. If she were crashing, we would switch to ertapenem to cover ESBL E. coli but she does not have a significant history of recurrent UTIs or antibiotic use and given her benign physical exam I think we can probably wait for the susceptibilities. 3. Depending on the susceptibilities of the E. coli in the blood, and hopefully the urine, we can likely select some therapy if it is sensitive to quinolones perhaps, and get her out on some oral Cipro or levo if the Cipro or levo MICs are good for this organism. Thank you very much for this consult. BEBETO
--- NOTE | 2016-11-13 14:16 | NUR ---
NUTRITION ASSESSMENT: ASSESS: 81 YO female admitted for shortness of breath, abd. pain, CHF exacerbation, Pneumonia, non-stemi. Pt diet was advanced to heart healthy today with pt eating 50% x 1 meal reported so far. PMHx: Multiple myeloma, CHF, COPD, tobacco abuse, A-fib, HTN, DC. LABS: Reviewed. BUN 31, Cr 1.10, Glu 126, Alb 2.9. MEDS: Reviewed. GI: No BM reported yet. CURRENT WT: 42.1 kg. Mar 2012: 45.45 kg. BMI may be inaccurate as ht has fluctuated during pas admits from 62-65 inches. DIET: Heart Healthy, Diabetic. PO 50% x 1 meal. EST. NEEDS (COPD, Underweight): 8953-4506 kcals (30-40 kcals/kg BW), 70-85 g protein (1.2-1.5 g/kg IBW) NUTRITION DIAGNOSIS: 1.) Increased nutrient needs related to increased demand for nutrients as evidenced by COPD and underweight status. NUTRITION INTERVENTION: 1.) Will add Glucerna TID to promote adequate po intake. MONITOR / EVAL: PO intake, labs, weights, height, nutritional status. Follow per moderate nutritional risk guidelines.
--- NOTE | 2016-11-13 16:25 | DRSVH ---
[facility] [address] [place] [address] Echocardiogram Report Name: JAMES DENNISON Date: 11/13/2016 Height: 25.5 in Hospital Exam Location: [facility] Weight: 205 lb Gender: Female BSA: 1.0 m2 : 1935 Age: 81 yrs BP: 104/51 mmHg Reason For Study: Congestive Heart Failure Ordering Physician: HOSPITALIST [facility] Performed By: [facility] Staff Referring Physician: ENEIDA Lee Interpretation Summary The left ventricle is normal in size. The ejection fraction is estimated to be 60-65%. No obvious LV wall motion abnormalities. The right ventricle is mildly dilated. The right ventricular systolic function is normal. RVSP is 20 mmHg. The left atrium is moderately dilated. The right atrium is mildly dilated. There is no significant valvular heart disease. The aortic root is normal size. Procedure: A two-dimensional transthoracic echocardiogram with color flow and Doppler was performed. The study quality was technically adequate. Comparison is made with the echocardiogram of 02/19/2016. The heart rate ranged between 62-79 bpm during the study. Left Ventricle: The left ventricle is normal in size. Left ventricular wall thickness is borderline increased. The ejection fraction is estimated to be 60-65%. Right Ventricle: The right ventricle is mildly dilated. The right ventricular systolic function is normal. Atria: The left atrium is moderately dilated. The right atrium is mildly dilated. The interatrial septum is intact with no evidence for an atrial septal defect. Mitral Valve: The mitral valve leaflets are mildly calcified. The mitral valve leaflets appear to open well. There is trace mitral regurgitation. Aortic Valve: The aortic valve is trileaflet. The aortic valve opens well. There is mild aortic valve sclerosis. No aortic regurgitation is present. Tricuspid Valve: The tricuspid valve is normal. There is trace tricuspid regurgitation. Pulmonic Valve: The pulmonic valve is not well seen, but is grossly normal. There is mild pulmonic regurgitation. There is no significant valvular heart disease. Great Vessels: The aortic root is normal size. The ascending aorta is normal in size. The aortic arch could not be visualized. The pulmonary artery is not well visualized, but is probably normal size. The IVC is of normal diameter and collapses greater than 50% with a sniff. This suggests a low right atrial pressure of 3 mm Hg. Pericardium/ Pleura There is no pericardial effusion. There is no pleural effusion. MMode/2D Measurements & Calculations LVIDd: 3.9 cm RA long axis LVOT diam LVIDs: 2.5 cm LA A2 area: 20.8 cm FS: 37.1 % LA A4 area: 13.9 cm RA area AoV Opening EPSS: 1.1 cm LA length (vol): 5.2 cm IVSd: 0.84 cm LA vol: 47.7 ml : 15.4 cm Ao root diam LVPWd: 1.2 cm LA vol index RA vol : 33.8 ml asc Aorta RA Diam: 2.9 cm IVC diam: 1.6 cm : 33.2 mm2 LV franklin. diameter/BSA LV sys. diameter/BSA RVD1 (basal) (cm/m^2): 3.9 (cm/m^2): 2.4 Doppler Measurements & Calculations Ao V2 max MV E max liborio MV E/A: 1.9 TR max liborio : 103.7 cm/sec : 101.8 cm/sec : 208.5 cm/sec Ao max PG MV A max liborio TR max PG : 4.3 mmHg : 53.8 cm/sec : 17.4 mmHg Ao mean PG MV P1/2t: 43.8 msec PA V2 max : 51.9 cm/sec LVOT Max Liborio PA mean PG : 56.9 cm/sec : 0.67 mmHg MARA(I,D): 1.5 cm sev ratio MV dec time MV P1/2t max liborio Ao V2 mean LV V1 max PG : 0.14 sec : 70.6 cm/sec Ao V2 VTI LV V1 VTI: 10.7 cm MVA(P1/2t): 5.0 cm2 MARA(V,D): 1.6 cm2 PA V2 mean MARA indexed to BSA : 39.9 cm/sec (cm^2/m^2): 1.4 PA pr(Accel) : 61.5 mmHg Reading Physician:HARMEET
[2016-11-13] MEDS ORDERED: cefTRIAXone Inj 2,000 MG in Dextrose 5% Minibag Plus 50 ML IV SCH ×2 (17:00→18:00)
[2016-11-13] MEDS ORDERED: Azithromycin Inj 500 MG in Dextrose 5% w/Vial Mate 250 ML IV SCH (18:00)
[2016-11-14] VITALS (12 sets, daily range): BP systolic 116–144; BP diastolic 57–76; PULSE 67–90; RESP 18–22; O2SAT 92–95
[2016-11-14 08:16] LABS: BASOPHILS % (AUTO) 0.2 % (0-3); EOSINOPHILS % (AUTO) 1.1 % (0-5); MONOCYTES % (AUTO) 6.7 % (4-12); Mean Corpuscular Hemoglobin 30.9 pg (27.0-35.0); Mean Corpuscular Volume 92.7 fL (81-100); NEUTROPHILS % (AUTO) 72.8 % (40-74); Platelet Count 256 bil/L (150-400)
[2016-11-14] MEDS: cefTRIAXone Inj 2,000 MG in Dextrose 5% Minibag Plus 50 ML IV SCH (08:55)
[2016-11-14 09:07] LABS: Magnesium 1.9 mg/dL (1.6-2.6)
[2016-11-14] MEDS: Albuterol-Ipratropium 3 mL Inhalation Solution NEB PRN ×2 (09:22→15:32)
--- NOTE | 2016-11-14 11:57 | PCM.PNMED ---
Subjective Date of Service Nov 14, 2016 Subjective Generalized weakness improving overall. Had dyspnea and improved with breathing treatment. Exam Vital Signs Vital Sign - Last Date Time Temp Pulse Resp B/P Pulse Ox O2 Delivery O2 Flow Rate FiO2 11/14/16 09:41 78 11/14/16 09:22 22 92 Room Air 11/14/16 09:02 36.6 118/64 Intake and Output 11/13/16 11/13/16 11/14/16 Cumulative From/Thru 15:00 23:00 07:00 11/12/16 11:34 - 11/14/16 06:45 Intake Total 387 ml 608 ml Output Total 400 ml 900 ml Balance -13 ml -292 ml Intake Oral 337 ml 337 ml IV Total 50 ml 271 ml Output Urine Total 400 ml 900 ml # Voids 2 3 # Bowel Movements 0 Exam General: No acute distress, appropriately interactive, frail HEENT: Normocephalic, atraumatic. PERRLA, EOMI, Anicteric sclerae, moist conjunctivae. Neck: No bruits, JVD present, Cardiovascular: Regular rate and rhythm with no murmurs, rubs, or gallops appreciated Pulmonary: Bilateral air stone, coarse breath at the lower bases, cannot appreciate any crackles Abdomen: Positive bowel sounds, soft and diffusely tender Extremities: No clubbing or cyanosis, no lymphedema, no b/l lower leg edema Skin: Normal temperature, turgor, and texture; no rash. No visualized skin ulcer. Neurological: CN II-VII grossly intact, moving equally on all 4 extremities Psychiatric: Normal mood and affect. AOx3 IVs and Medications Medications Reviewed: Medications were reviewed in detail Lab and Diagnostics Result Diagram: 11/14/1673911/14/16 0740 X-Rays, CTs and MRIs PROCEDURE: CT ABDOMEN AND PELVIS WITHOUT CONTRAST ([id number]) INDICATIONS: pleuritic chest pain, dyspnea IMPRESSION: 1. No definite acute abnormality within the abdomen or pelvis. 2. Small bilateral pleural effusions and associated atelectasis. Superimposed right basilar pneumonia difficult to exclude. 3. Moderate residual stool within the colon. No bowel obstruction. 4. Colonic diverticulosis without diverticulitis. The appendix is normal. 5. Cholelithiasis. 6. Perinephric edema probably a senescent. The possibility of renal inflammation/infection is difficult to exclude and clinical correlation is recommended. No definite renal calculi. 7. Extensive pancreatic calcifications are suggestive of prior pancreatitis. No findings to suggest acute pancreatitis are evident. Dictated by: Dionte Du M.D. on 11/12/2016 at 15:38 Cardiac Echo Impressions Interpretation Summary The left ventricle is normal in size. The ejection fraction is estimated to be 60-65%. No obvious LV wall motion abnormalities. The right ventricle is mildly dilated. The right ventricular systolic function is normal. RVSP is 20 mmHg. The left atrium is moderately dilated. The right atrium is mildly dilated. There is no significant valvular heart disease. The aortic root is normal size. Assessment & Plan Patient is an 81-year-old male with a medical history significant for CHF, COPD , atrial fibrillation, hypertension, and CA with shortness of breath, productive cough, and abdominal pain admitted for an NSTEMI, CHF exacerbation, possible pneumonia. # Escherichia coli bacteremia/ sepsis from partially treated UTI , sepsis resolved -initial SBP 93,wbc 12.3 -UA with pyuria,treated with Nitrofurantoin outpatient -Blood culture growing Escherichia coli and urine culture GNRs -Continue ceftriaxone. Discontinued azithromycin. Consulted ID # demand ischemia from infection/sepsis -elevated trops, no ST/T changes -likely demand ischemia,NSTEMI unlikely -ASA 81mg given, restart home metoprolol, no statin 2nd to elevated LFT. -Initially started heparin drip , discontinued heparin drip. Echocardiogram unremarkable -trended downTroponin, -placed on telemetry # Generalized weakness due to UTI, improving # Initially Suspected Acute CHF exacerbation, ruled out -elevated BNP, JVD noted -received 1 dose of 40 mg Lasix in the ED, hold off for now until sepsis is treated -echo unremarkable,EF normal # history of light chain disease ,chronic # Atrial fibrillation -ASA only outpatient -rate controlled, cont home Metoprolol -not on AC for unclear reasons. Advised to follow-up with PCP # Initially suspected Community aquired pneumonia, ruled out - Ct-abd and Crx showed possible infiltrate -procalcitonin 1.38 due to UTI - broad-spectrum ceftriaxone and azithromycin started in the ED. discontinued azithromycin -Patient has no significant cough. Unchanged from her baseline COPD # COPD -Without exacerbation -Continue home inhalers -Duoneb prn # Mild transaminitis -Hypoperfusion -Lipase negative # CKD stage IIIa -stable, baseline Cr 1.15. CODE STATUS full code DVT prophylaxis heparin Disposition: Possible discharge tomorrow on oral antibiotics Patient Status: Patient is admitted under inpatient status with expected length of stay GREATER than 2 midnights due to severity of presenting symptoms, risk of adverse event, and complexity of treatment plan. VTE Mechanical Devices: Venous Foot Pump Resuscitation Status: CPR: Attempt Resuscitation Edis Montana MD Nov 14, 2016 11:57
[2016-11-15] VITALS (9 sets, daily range): BP systolic 116–136; BP diastolic 57–74; PULSE 50–86; RESP 18–20; O2SAT 92–98
[2016-11-15] MEDS: oxyCODONE 1 mg/mL 5 mL Liquid PO PRN (02:50)
[2016-11-15] MEDS: Albuterol-Ipratropium 3 mL Inhalation Solution NEB PRN ×2 (07:48→13:24)
[2016-11-15] MEDS: cefTRIAXone Inj 2,000 MG in Dextrose 5% Minibag Plus 50 ML IV SCH (09:19)
[2016-11-15 10:49] LABS: BASOPHILS % (AUTO) 0.2 % (0-3); EOSINOPHILS % (AUTO) 2.8 % (0-5); Mean Corpuscular Hemoglobin 30.7 pg (27.0-35.0); Mean Corpuscular Volume 94.6 fL (81-100); Platelet Count 265 bil/L (150-400)
--- NOTE | 2016-11-15 11:19 | NUR ---
Evaluation completed. Please go to "Notes" then click on "Assessments and Notes" (bottom left corner of screen). Then select appropriate discipline tab on top of screen.
--- NOTE | 2016-11-15 11:38 | PCM.DIMED ---
Discharge Instructions Date of Service Nov 15, 2016 Dates of Hospitalization Nov 12, 2016 at 18:16 Discharge Diagnosis Discharge Diagnosis # Escherichia coli bacteremia/ sepsis from partially treated UTI , sepsis resolved # demand ischemia from infection/sepsis # Generalized weakness due to UTI, improving # history of light chain disease ,chronic # Atrial fibrillation # COPD # CKD stage IIIa Diet Discharge Diet: Low fat, Low Sodium, Heart Healthy Activity Discharge Activity: Limited until seen by PCP Call your provider Call your provider for: Fever or Chills, Shortness of breath, Bleeding, Chest pain, Vomitting, Excessive diarrhea, Weakness (unilateral) Patient Instructions Patient Instructions You were hospitalized due to sepsis/bacteremia due to UTI.( Bloodstream infection coming from urine infection) .You have been treated with IV antibiotics. Please continue cefdinir 300 milligrams by mouth twice a day for 8 more days. Please continue all other medications. Follow-up Provider: Amy Lee Follow-up with PCP in: 1 week Edis Montana MD Nov 15, 2016 11:38
[2016-11-15] MEDS ORDERED: CEFD300C3 PO (11:39)
--- NOTE | 2016-11-15 12:01 | PCM.DC.MED ---
Discharge Summary Date of Service Nov 15, 2016 Dates of Hospitalization Date of Hospital Admission Nov 12, 2016 at 18:16 Date of Discharge: Nov 15, 2016 Providers: Admitting Physician: Edis Green MD Primary Care Physician: Amy Lee Attending Physician: Edis Green MD Diagnosis at Time of Discharge Diagnosis at Time of Discharge # Escherichia coli bacteremia/ sepsis from partially treated UTI , sepsis resolved # demand ischemia from infection/sepsis # Generalized weakness due to UTI, improving # history of light chain disease ,chronic # Atrial fibrillation # COPD # CKD stage IIIa Consultations ID Dr Us Procedures XRay, CTs & MRIs PROCEDURE: CT ABDOMEN AND PELVIS WITHOUT CONTRAST ([id number]) INDICATIONS: pleuritic chest pain, dyspnea IMPRESSION: 1. No definite acute abnormality within the abdomen or pelvis. 2. Small bilateral pleural effusions and associated atelectasis. Superimposed right basilar pneumonia difficult to exclude. 3. Moderate residual stool within the colon. No bowel obstruction. 4. Colonic diverticulosis without diverticulitis. The appendix is normal. 5. Cholelithiasis. 6. Perinephric edema probably a senescent. The possibility of renal inflammation/infection is difficult to exclude and clinical correlation is recommended. No definite renal calculi. 7. Extensive pancreatic calcifications are suggestive of prior pancreatitis. No findings to suggest acute pancreatitis are evident. Dictated by: Dionte Du M.D. on 11/12/2016 at 15:38 Cardiac Echo Impression Interpretation Summary The left ventricle is normal in size. The ejection fraction is estimated to be 60-65%. No obvious LV wall motion abnormalities. The right ventricle is mildly dilated. The right ventricular systolic function is normal. RVSP is 20 mmHg. The left atrium is moderately dilated. The right atrium is mildly dilated. There is no significant valvular heart disease. The aortic root is normal size. Brief History per HPI Pt carries a medical history significant for multiple myeloma, CHF, COPD, paroxysmal atrial fibrillation, hypertension, history of MD, and COPD active smoker. Patient presented with 4 days of shortness of breath with associated productive cough, mild fever, malaise, and fatigue. Patient unable to tolerate walking even from bedroom to bathroom due to the shortness of breath whereas she could before. Concurrently, patient also has a nausea and vomiting for the past 4 day with very little by mouth intake. Today, patient reported significant diffuse abdominal pain and mild constant left-sided chest pain, and thus brought into the ED for further evaluation. Chest pain associated with inspiration, no radiation to left arm or jaw however. Patient was taken to the ED at [facility] last Wednesday for similar symptoms, found positive for UTI, and thus, was given nitrofurantoin prior to discharge. In the ED, labs shows WBC 12.3 with neutrophils 77.8%. With x-ray showing mid right airspace disease, possible atelectasis or pneumonia. Antibiotics ceftriaxone and azithromycin was thus started. Due to increasing abdominal pain , CT abdomen also ordered showing only perinephric edema probably secondary to renal inflammation and diverticulosis. Significant, routine screening labs shows a troponin elevation. Thus patient was admitted to the medical floor for possible an NSTEMI, CHF exacerbation, and possible pneumonia. Hospital Course Patient is an 81-year-old male with a medical history significant for CHF, COPD , atrial fibrillation, hypertension, and MD with shortness of breath, productive cough, and abdominal pain admitted for an NSTEMI, CHF exacerbation, possible pneumonia. # Escherichia coli bacteremia/ sepsis from partially treated UTI , sepsis resolved -initial SBP 93,wbc 12.3 -UA with pyuria,treated with Nitrofurantoin outpatient -Blood culture growing Escherichia coli and urine culture GNRs -Treated with ceftriaxone. Initially treated with but Discontinued azithromycin. Consulted ID. Escherichia coli sensitive to cephalosporins. Discharged on cefidinir 300 mg bid for 8 more days. # demand ischemia from infection/sepsis -elevated trops, no ST/T changes -likely demand ischemia,NSTEMI unlikely -ASA 81mg given, restart home metoprolol, no statin 2nd to elevated LFT. -Initially started heparin drip , discontinued heparin drip. Echocardiogram unremarkable -trended downTroponin, -placed on telemetry .had brief 7 beats NSVTs # Generalized weakness due to UTI, improving # Initially Suspected Acute CHF exacerbation, ruled out -elevated BNP, JVD noted -received 1 dose of 40 mg Lasix in the ED, -echo unremarkable,EF normal # history of light chain disease ,chronic # Atrial fibrillation -ASA only outpatient -rate controlled, cont home Metoprolol -not on AC for unclear reasons. Advised to follow-up with PCP # Initially suspected Community aquired pneumonia, ruled out - Ct-abd and Crx showed possible infiltrate -procalcitonin 1.38 due to UTI - broad-spectrum ceftriaxone and azithromycin started in the ED. discontinued azithromycin -Patient has no significant cough. Unchanged from her baseline COPD # COPD -Without exacerbation -Continue home inhalers -Duoneb prn # Mild transaminitis -Hypoperfusion -Lipase negative # CKD stage IIIa -stable, baseline Cr 1.15. CODE STATUS full code DVT prophylaxis heparin used Disposition: discharge home on oral antibiotics Condition on discharge stable. Exam Vital Signs (Last) Date Time Temp Pulse Resp B/P Pulse Ox O2 Delivery O2 Flow Rate FiO2 11/15/16 10:19 86 11/15/16 09:37 36.6 18 116/63 92 Room Air Exam General: No acute distress, appropriately interactive, frail HEENT: Normocephalic, atraumatic. PERRLA, EOMI, Anicteric sclerae, moist conjunctivae. Neck: No bruits, JVD present, Cardiovascular: Regular rate and rhythm with no murmurs, rubs, or gallops appreciated Pulmonary: Bilateral air stone, coarse breath at the lower bases, cannot appreciate any crackles Abdomen: Positive bowel sounds, soft and diffusely tender Extremities: No clubbing or cyanosis, no lymphedema, no b/l lower leg edema Skin: Normal temperature, turgor, and texture; no rash. No visualized skin ulcer. Neurological: CN II-VII grossly intact, moving equally on all 4 extremities Psychiatric: Normal mood and affect. AOx3 Test 11/12/16 11:45 11/12/16 12:27 11/12/16 13:22 11/12/16 13:30 Prothrombin Time 9.9sec (8.1-12.5) Prothromb Time International Ratio 0.93ratio Hemoglobin A1c 6.1% (4.8-5.6) Pro-B-Type Natriuretic Peptide 72095uk/mL (0-738) Lipase 27U/L (13-60) Thyroid Stimulating Hormone (TSH) 3.720uIU/mL (0.450-4.500) Lactic Acid Level 0.8mmol/L (0.4-2.0) Urine Legionella pneumophilia Ag Negative (Negative) Urine Color Yellow (YELLOW) Urine Appearance Hazy (CLEAR,HAZY) Urine pH 6.5 (5.0-8.0) Urine Specific [place] 1.010 (1.003-1.035) Urine Protein 100mg/dL (NEG,TRACE) Urine Glucose (UA) Negativemg/dL (NEGATIVE) Urine Ketones Negativemg/dL (NEGATIVE) Urine Occult Blood Trace (NEGATIVE) Urine Nitrite Negative (NEGATIVE) Urine Bilirubin Negative (NEGATIVE) Urine Urobilinogen Normalmg/dL (NORMAL) Urine Leukocyte Esterase Small (NEGATIVE) Urine RBC 3-10/hpf (0-2) Urine WBC 11-50/hpf (0-5) Urine Epithelial Cells Occasional/hpf (NONE-MOD) Urine Crystals None seen (NONE SEEN) Urine Bacteria Few/hpf (NONE-FEW) Urine Hyaline Casts None/lpf (NONE) Urine Granular Casts None seen (NONE SEEN) Urine Waxy Casts None seen (NONE SEEN) Urine Red Blood Cell Casts None seen (NONE SEEN) Urine White Blood Cell Casts None seen (NONE SEEN) Urine Mucus None seen (None Seen) Urine Trichomonas None seen (NONE SEEN) Urine Yeast None (NONE SEEN) Urinalysis Comment None Urine Culture Reflexed Indicated Test 11/12/16 19:03 11/13/16 05:40 11/13/16 08:40 11/14/16 07:40 Total Creatine Kinase 47U/L (21-215) Creatine Kinase MB 2.0ng/mL (0.0-5.3) Creatine Kinase MB % % (0.0-5.0) Procalcitonin 0.76ng/mL (0.00-0.08) Activated Partial Thromboplast Time 110.6sec (22.8-33.0) Magnesium Level 1.9mg/dL (1.6-2.6) Troponin T 0.039ug/L (0.0-0.011) Test 11/15/16 09:20 White Blood Count 13.0th/mm3 (3.8-10.1) Red Blood Count 3.16mil/mm3 (3.90-5.20) Hemoglobin 9.7g/dL (12.0-15.6) Hematocrit 29.9% (35.0-46.0) Mean Corpuscular Volume 94.6fL (81-100) Mean Corpuscular Hemoglobin 30.7pg (27.0-35.0) Mean Corpuscular Hemoglobin Concent 32.4% (32.0-37.0) Red Cell Distribution Width 14.5% (12.3-15.4) Platelet Count 265bil/L (150-400) Neutrophils (%) (Auto) 69.0% (40-74) Lymphocytes (%) (Auto) 20.5% (14-46) Monocytes (%) (Auto) 7.0% (4-12) Eosinophils (%) (Auto) 2.8% (0-5) Basophils (%) (Auto) 0.2% (0-3) Sodium Level 139mEq/L (134-144) Potassium Level 4.6mEq/L (3.5-5.2) Chloride Level 100mEq/L (97-108) Carbon Dioxide Level 23mmol/L (18-29) Blood Urea Nitrogen 28mg/dL (8-27) Creatinine 0.92mg/dL (0.57-1.00) Estimat Glomerular Filtration Rate 84mL/min (>59) Glucose Level 137mg/dL (60-99) Calcium Level 8.8mg/dL (8.5-10.1) Total Bilirubin 0.2mg/dL (0.0-1.2) Aspartate Amino Transf (AST/SGOT) 28U/L (0-50) Alanine Aminotransferase (ALT/SGPT) 22U/L (0-32) Alkaline Phosphatase 82U/L (25-165) Total Protein 6.2g/dL (6.4-8.4) Albumin 2.9g/dL (3.4-5.0) Microbiology Results [facility] CULTURE BLOOD Final 11/15/16-1143 Organism 1 ESCHERICHIA COLI GRAM STAIN RESULT GRAM NEGATIVE RODS BC BOTTLE Isolated from Aerobic Bottle of Set Drawn DATE CALLED: 11/13/16 TIME CALLED: 0632 CALLED BY: VF FLOOR/DOCTOR: ERICK/DORIS Baumann BC READ BACK Y TYPE OF DRAW PERIPHERAL DRAW TIME OF POSITIVITY 0600 ISOLATED FROM ONE OF THREE BOTTLES COLLECTED 11/12 BLD PCR PANEL ADD BCID PCR PANEL 1. ESCHERICHIA COLI M.I.C Interp --------- ------ * AMIKACIN <=2 S * AMPICILLIN >=32 R * AMPICILLIN/SULBACTAM 16 I * CEFEPIME <=1 S * CEFOXITIN <=4 S * CEFTRIAXONE <=1 S * CIPROFLOXACIN 0.5 S * ERTAPENEM <=0.5 S * GENTAMICIN <=1 S * MEROPENEM <=0.25 S * TOBRAMYCIN <=1 S * TRIMETHOPRIM/SULFAMETHOXAZOLE >=320 R * PIPERACILLIN/TAZOBACTAM <=4 S [facility] CARBAPENEM RESISTANCE GENE Final 11/13/16-805 Not Detected Discharge Medications Discharge Medications Aspirin Chew (Aspirin Chew) 81 Mg Chew 162 MG PO QAM (Reported) Calcium Carbonate/Vitamin D3 (Calcium 500 mg Chewable Tablet) 1 Each Tab.chew 1 EACH PO QAM (Reported) Carvedilol (Carvedilol) 12.5 Mg Tablet 12.5 MG PO BID (Reported) HOLD FOR HR < 60 BPM Cefdinir (Cefdinir) 300 Mg Capsule 300 MG PO BID Prescribed by: EDIS GREEN MD Cholecalciferol (Vitamin D3) (Vitamin D3) 2,000 Unit Tablet 2,000 UNIT PO QAM ( Reported) Cyanocobalamin (Vitamin B-12) (Vitamin B-12) 1,000 Mcg Tablet 1,000 MCG PO QAM ( Reported) Folic Acid (Folic Acid) 0.4 Mg Tablet 0.4 MG PO QAM (Reported) Furosemide (Furosemide) 20 Mg Tab 20 MG PO QAM (Reported) Magnesium Chloride (Slow-Mag) 64 Mg Tablet 64 MG PO QAM (Reported) Mirtazapine (Mirtazapine) 30 Mg Tablet 30 MG PO HS (Reported) Multivits-Min/Iron/FA/Lutein (Centrum Silver Women Tablet) 8 Mg Iron-400 Mcg- 300 Mcg Tablet 1 EACH PO QAM (Reported) Potassium Chloride ER (Potassium Chloride ER) 10 Meq Tablet 10 MEQ PO DAILYWM ( Reported) TAKE WITH FOOD Simvastatin (Simvastatin) 40 Mg Tablet 40 MG PO HS (Reported) Tiotropium Rule (Spiriva) 18 Mcg Cap.w.dev 18 MCG IH QAM (Reported) As needed Albuterol Neb Soln (Albuterol Neb Soln) 2.5 Mg/3 Ml Vial.neb 2.5 MG INHALATION Q4H PRN PRN For Shortness of Breath (Reported) Nitroglycerin SL (Nitroglycerin SL) 0.4 Mg Tab.subl 0.4 MG SL Q5MIN PRN PRN For Chest Pain (Reported) Followup Plan Disposition: Home Discharge Diet: Low fat, Low Sodium, Heart Healthy Discharge Activity: Limited until seen by PCP Patient Instructions You were hospitalized due to sepsis/bacteremia due to UTI.( Bloodstream infection coming from urine infection) .You have been treated with IV antibiotics. Please continue cefdinir 300 milligrams by mouth twice a day for 8 more days. Please continue all other medications. Follow-up Provider: Amy Lee Follow-up with PCP in: 1 week Time spent 35 minutes coordinating discharge and answering questions copies to: Amy Lee Melaku MD Nov 15, 2016 12:01
--- NOTE | 2016-11-15 12:14 | NUR ---
Social Work: Initial Assessment / Discharge Data: See initial assessment. Patient is a 81 year old female who was admitted on 11/12/16 for exacerbation of CHF, pneumonia, & N-STEMI per H&P. EMR reviewed. SW met with patient to discuss discharge planning. SW role explained. Patient states that she lives in [place] with her granddaughter and three grandchildren. Patient states that her granddaughter Viviana and daughter Florinda are her main support system. Patient states that the 1-story home has 4 steps at the entrance. Patient states that she is I at baseline with the assistance of a cane and walker. Patient confirms that she does drive. Patient informed SW that she couldn't remember if she had DPOA paperwork completed but requested paperwork. SW has provided patient with DPOA paperwork. Patient confirmed that AD had been completed. Patient denies having a hx of home health services or SNF. Patient denies having [facility] care insurance or VA benefits. Patient denies being a caregiver for anyone. Upon discharge, patient states that her daughter Florinda will assist with transporting her home. SW provided patient with a discharge planning checklist and encouraged to call with any questions/concerns. Phone number provided. Patient was discussed in morning rounds. Patient is pending a PT evaluation prior to discharge. Patient has no additional needs at this time. Assessment: Patient will discharge home with family. Plan: Patient will discharge home today with family. Patient has been deemed medically stable per MD. PT has evaluated patient and recommendation has been made for patient to receive outpatient PT at discharge. Transportation will be provided by patient's daughter Florinda. Patient has no additional needs at this time. FARHAD Rondon Addendum: 11/15/16 at 1227 by J LUIS VIVAS Amended: Links added.
--- NOTE | 2016-11-15 14:13 | PROG NOTE ---
[address] [address] PROGRESS NOTE PATIENT: JAMES DENNISON : 1935 MR#: [id number] ADMIT: 11/12/2016 JOB ID: [id number] DATE: 11/15/2016 REASON FOR FOLLOWUP: Bacteremic E. coli urinary tract infection. INTERVAL HISTORY: Over the past couple days since I last saw the patient, she has been gradually improving. She still has some right flank pain, but she does not have nausea or vomiting and she is able to eat and keep herself hydrated. No additional fevers, chills or sweats, and no respiratory symptoms. PHYSICAL EXAMINATION: Reveals a woman who has been afebrile since admission. Current temp 36.6, pulse 86, respiratory rate 18, blood pressure 116/63. She is saturating well on room air and in no acute distress. Examination of the head is unremarkable. There is no sore throat. No pharyngitis is noted. The patient's mental status is normal. Her lungs are clear. Cardiac tones: Regular rate and rhythm. The abdomen is notable for some minimal right upper quadrant as well as right flank pain. LABORATORIES: Include a white count which is surprisingly not changed: Is still 13,000, as it was when she came in, but the left shift has completely resolved and she now has a normal diff. Her creatinine is 0.92. Her LFTs are normal. Procalcitonin slightly increased. Albumin 2.9. Last procalcitonin 0.76 two days ago. Urinalysis with 11-50 white cells on admission. That urine grew E. Coli with an MERCEDES to Cipro 0.5. Blood also grew E coli, presumably the same organism. That was resistant to Bactrim and ampicillin, again with a moderate Cipro MERCEDES, though the lab was double checking on that. It is interesting that the E coli is very susceptible to all tested cephalosporins, including even first-generation cephalosporins. IMPRESSION: This patient has improved substantially during her three days or so here in the hospital with intravenous ceftriaxone. Except for her white count, everything seems to have returned to her baseline. She also still has, of course, some residual right flank pain. At this point, she is highly desirous of going home on oral therapy and I think that is not unreasonable, but she will require close outpatient followup given that she did have a bacteremic urinary tract infection. RECOMMENDATIONS: 1. She could be discharged on either Cipro 500 p.o. b.i.d. or cefdinir 300 mg p.o. b.i.d. I would give about 10 days of either of these. 2. I have discussed this case in person with Dr. [place] this morning. Thank you very much. ID will be signing off.
--- NOTE | 2016-11-15 15:06 | NUR ---
DISCHARGE Patient discharged home at 1457, off floor in wheelchair accompanied by [employer] and family member. IV discontinued intact, all belongings returned. All instructions for diet, activity, medications, new prescriptions and follow-up reviewed with patient and daughter who report understanding. Vitals stable, denies pain and in no apparent distress.
== END 2016-11-15 14:54 | disposition home or self-care (01) | DRG 872 ==
LOC: SED 11:25 → MPC 18:16
PROVIDERS: ADMIT Internal Medicine; ATTEND Internal Medicine
DX: A41.51 Sepsis due to Escherichia coli [E. coli] (principal); I24.8 Other forms of acute ischemic heart disease; N39.0 Urinary tract infection, site not specified; J44.9 Chronic obstructive pulmonary disease, unspecified; I48.0 Paroxysmal atrial fibrillation; F17.210 Nicotine dependence, cigarettes, uncomplicated; N18.3 Chronic kidney disease, stage 3 (moderate); E78.5 Hyperlipidemia, unspecified; I12.9 Hypertensive chronic kidney disease with stage 1 through stage 4 chronic kidney disease, or unspecified chronic kidney disease; Z79.82 Long term (current) use of aspirin; I25.2 Old myocardial infarction; Z79.51 Long term (current) use of inhaled steroids